=== PATIENT | female | born 1985 ===

== ENCOUNTER 2021-04-20 08:06 | Outpatient (CLI) | payer OTHER | END 2021-04-20 08:07 | disposition home or self-care (01) | LOC: BICULT 08:06 | PROVIDERS: ATTEND Family Medicine | DX: O26.891 Other specified pregnancy related conditions, first trimester (principal); N91.2 Amenorrhea, unspecified; Z3A.01 Less than 8 weeks gestation of pregnancy | CPT/HCPCS: 76856 ==